=== PATIENT | male | born 1990 | race Caucasian/White ===

== ENCOUNTER 2018-05-18 17:16 | Emergency (ER) | payer OTHER ==
[2018-05-18 17:27] VITALS: PULSE 86; BMI 29.3
[2018-05-18 17:46] LABS: URINE APPEARANCE CLEAR; URINE BILIRUBIN NEGATIVE (<2.0 mg/dL); URINE COLOR LTYELLOW; URINE GLUCOSE (UA) NEGATIVE (NEGATIVE); URINE KETONE NEGATIVE (NEGATIVE); URINE LEUK ESTERASE NEGATIVE (NEGATIVE); URINE NITRITE NEGATIVE (NEGATIVE); URINE PROTEIN NEGATIVE (NEGATIVE); URINE UROBILINOGEN NEGATIVE mg/dL (0.2-1.0)
--- NOTE | 2018-05-18 18:23 | PDOC ---
History of Present Illness - General Chief Complaint: Pain, Acute Stated Complaint: ABD PAIN Time Seen by Provider: 05/18/18 18:05 - History of Present Illness Initial Comments: The patient is a 27M w/ no reported PMH who presents for evaluation of 2 days of worsening, intermittent, achy/cramping, non-radiating RLQ abdominal pain. He has never had pain like this before. He denies associated fevers/chills, N/V/C/D , blood in his stool, dysuria, hematuria, chest pain, or trouble breathing. 05/18/18 18:19 Past History - Past Medical History Allergies/Adverse Reactions: Allergies Allergy/AdvReac Type Severity Reaction Status Date / Time No Known Allergies Allergy Verified 05/18/18 17:27 Home Medications: Ambulatory Orders NK [No Known Home Medication] 05/18/18 - Suicide/Smoking/Psychosocial Hx Smoking History: Never smoked Hx Alcohol Use: Yes (socially) Review of Systems - Review of Systems Able to Perform ROS?: Yes Comments:: GENERAL/CONSTITUTIONAL: No fever or chills. No weakness HEAD, EYES, EARS, NOSE AND THROAT: No change in vision. No ear pain or discharge. No sore throat CARDIOVASCULAR: No chest pain or shortness of breath RESPIRATORY: No cough, wheezing, or hemoptysis GASTROINTESTINAL: No nausea, vomiting, diarrhea or constipation GENITOURINARY: No dysuria, frequency, or change in urination MUSCULOSKELETAL: No joint or muscle swelling or pain. No neck or back pain SKIN: No rash NEUROLOGIC: No headache, vertigo, loss of consciousness, or change in strength/ sensation ENDOCRINE: No increased thirst. No abnormal weight change HEMATOLOGIC/LYMPHATIC: No anemia, easy bleeding, or history of blood clots ALLERGIC/IMMUNOLOGIC: No hives or skin allergy 05/18/18 18:29 *Physical Exam - Vital Signs Last Vital Signs Temp Pulse Resp BP Pulse Ox 98.6 F 86 18 129/78 99 05/18/18 17:24 05/18/18 17:24 05/18/18 17:24 05/18/18 17:24 05/18/18 17:24 - Physical Exam Comments: GENERAL: Awake, alert, and fully oriented, in no acute distress HEAD: No signs of trauma, normocephalic, atraumatic EYES: PERRL, EOMI, sclera anicteric, conjunctiva clear ENT: Hearing grossly normal, nares patent, oropharynx clear without exudates. Moist mucosa NECK: Normal ROM, supple, no lymphadenopathy LUNGS: No distress, speaks full sentences, clear to auscultation bilaterally HEART:Regular rate and rhythm, normal S1 and S2, no murmurs appreciated, peripheral pulses normal and equal bilaterally ABDOMEN: Soft, RLQ TTP w/ rebound, no guarding, normoactive bowel sounds : Normal external genitalia without blood at meatus. No ecchymosis or edema. Mild R testicular TTP and pain that is alleviated by elevation EXTREMITIES : Normal inspection, Normal range of motion, no edema. No clubbing or cyanosis NEUROLOGICAL: Cranial nerves II through XII grossly intact. Normal speech, normal gait, no focal sensorimotor deficits SKIN: Warm, Dry, normal turgor, no rashes or lesions noted 05/18/18 18:30 ED Treatment Course - LABORATORY CBC & Chemistry Diagram: 05/18/18 20:16 05/18/18 20:16 - ADDITIONAL ORDERS Additional order review: Laboratory Results 05/18/18 17:20 Urine Color Ltyellow Urine Appearance Clear Urine pH 5.0 Ur Specific [place] 1.023 Urine Protein Negative Urine Glucose (UA) Negative Urine Ketones Negative Urine Blood Negative Urine Nitrite Negative Urine Bilirubin Negative Urine Urobilinogen Negative Ur Leukocyte Esterase Negative Medical Decision Making - Medical Decision Making The patient is a 27M who presents for evaluation of RLQ abdominal pain and R testicular pain for 2 days ED Course -CMP, CBC -CT A&P w/ contrast to r/o appendicitis -1L NS If CT significant for appendicitis, will plan for admission for surgery If negative, will plan for D/C w/ PCP f/u 05/19/18 00:19 CT w/o evidence of appendicitis Upon further questioning, the patient endorses R testicular pain that is alleviated with elevation. Patient reports monogamous relationship w/ for last 5 years. Denies discharge, dysuria, or hematuria -On exam there is no erythema. There is mild TTP and pain is alleviated w/ elevation. No discharge observed -Will obtain a testicular US to evaluate for torsion v epididimoorchitis 05/19/18 01:27 US w/o evidence of testicular torsion or epididimoorchitis. Plan for D/C w/ PCP f/u Discharge and return precautions given Patient verbalizes understanding and is in agreement with plan Dispo: Home 05/19/18 02:15 *DC/Admit/Observation/Transfer Diagnosis at time of Disposition: Right testicular pain, RLQ abdominal pain - Discharge Dispostion Disposition: HOME Condition at time of disposition: Stable Decision to Admit order: No - Referrals Referrals: [facility] [place] [facility] [place] [Provider Group] - Patient Instructions Printed Discharge Instructions: DI for Abdominal Pain-Adult Additional Instructions: You were seen in the Emergency Room for evaluation of abdominal pain and right testicular. You were evaluated and found not to have acute appendicitis. Review the handouts provided at discharge. Please follow up with your primary care doctor within the next 1-3 days. Return to the Emergency Room if you develop worsening pain, fevers, vomiting, diarrhea, blood in your stool, worsening symptoms, or new/concerning symptoms. - Post Discharge Activity
--- NOTE | 2018-05-18 18:53 | PDOC ---
Attending Attestation - Resident Resident Name: Juarez Parker - ED Attending Attestation I have performed the following: I have examined & evaluated the patient, The case was reviewed & discussed with the resident, I agree w/resident's findings & plan, Exceptions are as noted - HPI HPI: 05/18/18 18:52 27 yo male p/w 2 days of RLQ pain - Physicial Exam PE: 05/18/18 20:47 head ncat neck supple cvs [id number] lungs cta b/l abd +RLQ pain torso no cva tenderness ext no edema skin warm and dry neuro axox3,ambulatory psych appropriate - Medical Decision Making 05/19/18 00:38 urine negative cbc and chemistries are unremarkable ct scan of abd/pel shows a normal appendicitis 05/19/18 01:35 US did not show any torsion or epidymitis imp improving abd pain discharge home referred to our clinic at [facility]
[2018-05-18 20:48] LABS: HEMATOCRIT 43.1 % (35.4-49); HEMOGLOBIN 14.5 GM/dL (11.7-16.9); MCH 28.7 pg (25.7-33.7); MCHC 33.6 g/dl (32.0-35.9); MEAN CELL VOLUME 85.4 fl (80-96); MEAN PLT VOLUME 10.8 fl (7.5-11.1); PLATELET COUNT 195 K/MM3 (134-434); RBC 5.05 M/mm3 (4.00-5.60); RDW 13.1 % (11.9-15.9); WHITE BLOOD COUNT 8.2 K/mm3 (4.0-10.0)
[2018-05-18 21:37] LABS: ALBUMIN 4.1 g/dl (3.4-5.0); ALK PHOS 136 U/L (45-117); ANION GAP 6 MMOL/L (8-16); BILIRUBIN,TOTAL 0.3 mg/dL (0.2-1); BLOOD UREA NITROGEN 18 mg/dL (7-18); CALCIUM 8.8 mg/dL (8.5-10.1); CHLORIDE 104 mmol/L (98-107); CO2 28 mmol/L (21-32); GLUCOSE,RANDOM 114 mg/dL (74-106); POTASSIUM 4.2 mmol/L (3.5-5.1); SGOT/AST 20 U/L (15-37); SGPT/ALT 26 U/L (13-61); SODIUM 138 mmol/L (136-145); TOT PROT 7.8 g/dl (6.4-8.2)
[2018-05-18] MEDS ORDERED: SODIUM CHLORIDE 0.9% 500 ML INFUS.BAG IV ONE (21:40)
[2018-05-18] MEDS ORDERED: ACETAMINOPHEN 325 MG TABLET (FP) PO ONE (21:45)
[2018-05-18] MEDS ORDERED: ACETAMINOPHEN 325 MG TABLET (FP) ONE (23:45)
[2018-05-19 01:42] VITALS: BP 132/76; TEMP 98.2
== END 2018-05-19 01:42 | disposition home or self-care (01) ==
LOC: JER 17:16
DX: N50.811 Right testicular pain (principal); R10.31 Right lower quadrant pain
CPT/HCPCS: 36415; 74177-TC; 76856-TC; 76870-TC; 80053; 81003; 85027; 99282-25